=== PATIENT | female | born 1935 | race Caucasian/White ===

== ENCOUNTER → 2017-06-08 | Outpatient (CLI) | payer MEDICARE, BC ==
[~2017-06-08] MED LIST: ADVIL200 MG PO; APRESOLINE25 MG PO; ASPIRIN EC81 MG PO; BENADRYL25 MG PO; COZAAR100 MG PO; CPAP INH; HYGROTON25 MG PO; LIPITOR40 MG PO; PRESERVISION A1 EAC1 PO; PRILOSEC20 MG PO; ULTRAM50 MG PO; ZEBETA5 MG PO
== END | disposition disaster alternative care site (69) ==
LOC: GPOC 06-05 15:00 → GBCOE 13:06 → GPOC 13:30
PROC: 0H9T3ZX Drainage of Right Breast, Percutaneous Approach, Diagnostic (ICD-10-PCS; principal; 2017-06-08)
DX: N60.01 Solitary cyst of right breast (principal); R92.8 Other abnormal and inconclusive findings on diagnostic imaging of breast
CPT/HCPCS: J7050